=== PATIENT | female | born 1945 | race Caucasian/White ===

== ENCOUNTER 2016-09-07 23:14 | Emergency (ER) | payer MEDICARE, OTHER ==
[~2016-09-07] VITALS: Ht 170.2 cm; Wt 80.0 kg
[~2016-09-07 23:14] MED LIST: ATEN1TAB71 PO; ATOM60 PO; BUPR-197 PO; CALC500T19 PO; CLON1 PO; CONC54TA4 PO; NIAC500T18 PO; PIMO1TAB2 PO; PROT40TA PO; ROSU40 PO; SERO400T PO; TAB-TAB PO; TAUR500C2 PO; VITA400C70 PO; Z.0.WALKERFRONT; ZOFR4TAB3 SL; [UNRECOGNIZED DRUG - CODE] PO
[2016-09-07 23:18] VITALS: BP 148/74; PULSE 93; RESP 18; TEMP 97.3; O2SAT 98
--- NOTE | 2016-09-07 23:49 | PD ---
HPI Chief Complaint: Fall Time Seen by Provider: 23:49 Travel History International Travel<30 days: No Contact w/Intl Traveler<30days: No Traveled to known affect area: No History of Present Illness HPI 71 year-old female history of hypertension, anxiety, depression, ADD, presents emergency department for evaluation of perineal pain and swelling following an accident yesterday in which she tripped, straddling a hard plastic box. Patient states that she fell initially she was okay. She was given her body the opportunity to take care of the injury however it has gotten worse, more swollen, and is warm to touch. She states she did not fall and hit her head. Denying any hematuria or difficulty urinating. She does not report any changes in her bowel habits. No other symptoms to report. PFSH Past Medical History ADHD: Yes Arthritis: No Asthma: No Autoimmune Disease: No Blood Disorders: No Anxiety: Yes Depression: Yes Heart Rhythm Problems: No Cancer: Yes (+lymphnode - stage 3) Cardiovascular Problems: Yes (HTN and hyperlipidemia) High Cholesterol: No Chemotherapy: Yes (oral) Chest Pain: No Congestive Heart Failure: No COPD: No Cerebrovascular Accident: No Diabetes: No Diminished Hearing: No Endocrine: No Gastrointestinal Disorders: No GERD: No Genitourinary: No Headaches: No Hepatitis: No Hiatal Hernia: No Hypertension: Yes Immune Disorder: No Implanted Vascular Access Dvce: No Kidney Stones: No Musculoskeletal: No Neurologic: Yes (AMS, UTI) Psychiatric: Yes (pt takes multi meds, takes/took suboxone anxiety, depression) Reproductive: No Respiratory: Yes ("allergic asthma") Immunizations Current: Yes Migraines: No Radiation Therapy: No Renal Failure: No Seizures: No Sickle Cell Disease: No Sleep Apnea: No Thyroid Disease: No Ulcer: No Past Surgical History Abdominal Surgery: Yes (COLON RESECTION) AICD: No Arteriovenous Shunt: No Cardiac Surgery: No Ear Surgery: No Endocrine Surgery: No Eye Surgery: No Genitourinary Surgery: No Gynecologic Surgery: Yes (hysterectomy) Hysterectomy: Yes (PARTIAL) Insulin Pump: No Joint Replacement: No Neurologic Surgery: No Oral Surgery: No Pacemaker: No Thoracic Surgery: No Tonsillectomy: Yes Other Surgery: Yes (abdominal) Social History Alcohol Use: No Tobacco Use: No Substance Use: No Allergies-Medications (Allergen,Severity, Reaction): Coded Allergies: No Known Allergies (Unverified , 09/07/16) Reported Meds & Prescriptions Reported Meds & Active Scripts Active Lortab (Hydrocodone-Acetaminophen) 5-325 Mg Tab 1 Tab PO Q6H PRN Ibuprofen 600 Mg Tab 600 Mg PO Q8HR PRN Zofran ODT (Ondansetron HCl) 4 Mg Tab 4 Mg SL Q6HR PRN 14 Days Walker Front Wheel (Z.0.walkerfront) Device 1 Unit Reported Orap (Pimozide) 2 Mg Tab 2 Mg PO DAILY Concerta (Methylphenidate HCl) Methylphenidate 54 mg Miguel 2 Miguel PO DAILY Vitamin E-400 (Vitamin E) 400 Units Cap 400 Units PO DAILY Taurine 500 Mg Cap 500 Mg PO DAILY Seroquel 400 mg (Quetiapine Fumarate) 400 Mg Tab 400 Mg PO HS Crestor (Rosuvastatin Calcium) 40 Mg Tab 40 Mg PO HS Pimozide 2 Mg Tab 2 Mg PO HS Protonix (Pantoprazole Sodium) 40 Mg Tab 40 Mg PO BID Niacin (Niacinamide) 500 Mg Tab 500 Mg PO DAILY Multivitamin (Multivitamins) 1 Tab Tab 1 Tab PO DAILY Klonopin (Clonazepam) 1 Mg Tab 3 Mg PO HS Tenoretic-50 (Atenolol/Chlorthalidone) 1 Tab Tab 1 Tab PO DAILY Calcium 500 Mg Tab 500 Mg PO DAILY Wellbutrin (Bupropion HCl) 100 Mg Tab 400 Mg PO HS Strattera (Atomoxetine HCl) 60 Mg Cap 180 Mg PO HS Review of Systems Except as stated in HPI: all other systems reviewed are Neg Physical Exam Narrative GENERAL: Well-nourished, well-developed female patient, ambulatory and in no acute distress SKIN: Warm and dry. HEAD: Normocephalic. EYES: No scleral icterus. No injection or drainage. NECK: Supple, trachea midline. No JVD or lymphadenopathy. CARDIOVASCULAR: Regular rate and rhythm without murmurs, gallops, or rubs. RESPIRATORY: Breath sounds equal bilaterally. No accessory muscle use. Abdomen: Abdomen soft, non-tender, nondistended. Positive bowel sounds. No hepato-splenomegaly, or palpable masses. No guarding. GENITOURINARY: Significant ecchymosis of the perineum and swelling of the left labia majora. Ecchymosis extends into the suprapubic region. MUSCULOSKELETAL: No cyanosis, or edema. BACK: Nontender without obvious deformity. No CVA tenderness. Data Data Last Documented VS Vital Signs Date Time Temp Pulse Resp B/P Pulse Ox O2 Delivery O2 Flow Rate FiO2 09/08/16 00:10 9 20 09/07/16 23:18 97.3 148/74 98 Orders Iv Access Insert/Monitor (09/07/16 23:48) Complete Blood Count With Diff (09/07/16 23:48) Basic Metabolic Panel (Bmp) (09/07/16 23:48) Urinalysis - C+S If Indicated (09/07/16 23:48) Ct Abd/Pel W Iv Contrast(Rout) (09/07/16 ) Iodixanol 320 Inj (Visipaque 320 Inj) (09/08/16 01:12) Ibuprofen (Motrin) (09/08/16 02:00) Acetamin-Hydrocod 325-5 Mg (Tryon 5-325 (09/08/16 02:15) Labs Laboratory Tests Test 09/08/16 00:02 White Blood Count 9.5 TH/MM3 Red Blood Count 4.64 MIL/MM3 Hemoglobin 12.4 GM/DL Hematocrit 37.9 % Mean Corpuscular Volume 81.8 FL Mean Corpuscular Hemoglobin 26.7 PG Mean Corpuscular Hemoglobin 32.7 % Concent Red Cell Distribution Width 13.8 % Platelet Count 200 TH/MM3 Mean Platelet Volume 8.3 FL Neutrophils (%) (Auto) 58.6 % Lymphocytes (%) (Auto) 31.2 % Monocytes (%) (Auto) 7.1 % Eosinophils (%) (Auto) 2.3 % Basophils (%) (Auto) 0.8 % Neutrophils # (Auto) 5.5 TH/MM3 Lymphocytes # (Auto) 3.0 TH/MM3 Monocytes # (Auto) 0.7 TH/MM3 Eosinophils # (Auto) 0.2 TH/MM3 Basophils # (Auto) 0.1 TH/MM3 CBC Comment DIFF FINAL Differential Comment Sodium Level 139 MEQ/L Potassium Level 3.5 MEQ/L Chloride Level 102 MEQ/L Carbon Dioxide Level 31.9 MEQ/L Anion Gap 5 MEQ/L Blood Urea Nitrogen 17 MG/DL Creatinine 1.31 MG/DL Estimat Glomerular Filtration 40 ML/MIN Rate Random Glucose 122 MG/DL Calcium Level 8.8 MG/DL MDM Medical Decision Making Medical Screen Exam Complete: Yes Emergency Medical Condition: Yes Medical Record Reviewed: Yes Differential Diagnosis Ecchymosis versus hematoma versus pelvic fracture versus contusion Narrative Course 71-year-old female presents versus permanent for evaluation. Patient does have significant ecchymosis of the perineum. CBC and BMP are without acute concern. CT imaging is complete any fracture identified. There is a area of either inflammatory mass or hematoma in the perineum. Last Impressions Abdomen/Pelvis CT 09/07/16 0000 Signed Impressions: Service Date/Time: Thursday, September 08, 2016 01:10 - CONCLUSION: 1. 4.3 cm mass in the left perineal region in patient with history of trauma. Differential diagnosis includes hematoma but cannot exclude an inflammatory mass. There is also edema or bruising in the area mons pubis, left greater than right. 2. Severe constipation, especially left upper quadrant. Yunior Dudley MD Results are discussed with the patient. She is medically clear. She agrees to return immediately with any acute worsening of symptoms. Diagnosis Primary Impression: Perineal trauma Qualified Code: S39.94XA - Perineal trauma, initial encounter Additional Impressions: Perineal hematoma Qualified Code: S30.23XA - Perineal hematoma, initial encounter Constipation Referrals: Primary Care Physician Patient Instructions: General Instructions, Hematoma (ED) Additional Instructions: Cool compresses may help to alleviate pain Follow-up with a primary care provider Return immediately to the emergency department with any acute worsening symptoms Med/Other Pt SpecificInfo: Prescription(s) given Scripts Hydrocodone-Acetaminophen (Lortab)5-325 Mg Tab1 Tab PO Q6H PRN (PAIN GREATER THAN 6) #12 TAB Ref 0 Prov:Carlos Eduardo Law MD 09/08/16 Ibuprofen 600 Mg Ptd175 Mg PO Q8HR PRN (PAIN) #30 TAB Ref 0 Prov:Heather Ga 09/08/16 Disposition: 01 DISCHARGE HOME Condition: Stable Heather Ga Sep 07, 2016 23:49
[2016-09-08 00:14] LABS: AUTOMATED NEUTROPHIL # 5.5 TH/MM3 (1.8-7.7); BASOPHIL # 0.1 TH/MM3 (0-0.2); BASOPHIL % 0.8 % (0.0-2.0); EOSINOPHIL # 0.2 TH/MM3 (0-0.4); EOSINOPHIL % 2.3 % (0.0-4.0); HEMATOCRIT 37.9 % (35.0-46.0); HEMO FLAGS DIFF FINAL; LYMPH % 31.2 % (9.0-44.0); MEAN CELL VOLUME 81.8 FL (80.0-100.0); MEAN CORPUSCULAR HEMOGLOBIN 26.7 PG (27.0-34.0); MEAN CORPUSCULAR HGB CONC 32.7 % (32.0-36.0); MONO % 7.1 % (0.0-8.0); NEUT % 58.6 % (16.0-70.0); PLATELET COUNT 200 TH/MM3 (150-450); RED BLOOD COUNT 4.64 MIL/MM3 (4.00-5.30); RED CELL DISTRIBUTION WIDTH 13.8 % (11.6-17.2); WHITE BLOOD COUNT 9.5 TH/MM3 (4.0-11.0)
[2016-09-08 00:50] LABS: BICARBONATE 31.9 MEQ/L (21.0-32.0); POTASSIUM 3.5 MEQ/L (3.5-5.1)
[2016-09-08] MEDS ORDERED: IODIXANOL 320 MG/ML 10 ML VIAL (for RAD SPEC) IV ONE (01:12)
--- NOTE | 2016-09-08 01:54 | RADRPT ---
EXAM DATE/TIME: 09/08/2016 01:10 [facility] COMPARISON: CT ABDOMEN & PELVIS W/O CONTRAST, November 19, 2015, 21:20. CT ABDOMEN & PELVIS W CONTRAST, November 12, 2015, 0:54. INDICATIONS : Trauma; fall. Complains of left groin pain. IV CONTRAST: 47 cc Visipaque (iodixanol) IV ORAL CONTRAST: No oral contrast ingested. RADIATION DOSE: 6.54 CTDIvol (mGy) MEDICAL HISTORY : Hypertension. Lymphnode cancer. SURGICAL HISTORY : Hysterectomy. Colon resection. ENCOUNTER: Initial ACUITY: 1 day PAIN SCALE: 6/10 LOCATION: Left pelvis TECHNIQUE: Volumetric scanning of the abdomen and pelvis was performed. Using automated exposure control and ad justment of the mA and/or kV according to patient size, radiation dose was kept as low as reasonably achievable to obtain optimal diagnostic quality images. FINDINGS: Reportedly patient has a history of trauma with left groin pain. There is a mass in the perineal jonathon on on the left side measuring about 4.2 cm. This could represent a hematoma but cannot exclude an inf lammatory mass. There is edema or bruising in the area of mons pubis, left greater than right. No acute finding at the lung bases. Minimal atelectasis. No acute findings in the liver, spleen, adrenals, kidneys or pancreas. No calcified gallstones. There is moderate to severe constipation, especially in the left upper quadrant around a suspected staple line. CONCLUSION: 1. 4.3 cm mass in the left perineal region in patient with history of trauma. Differential diagnosis includes hematoma but cannot exclude an inflammatory mass. There is also edema or bruising in the are a mons pubis, left greater than right. 2. Severe constipation, especially left upper quadrant. Yunior Dudley MD on September 08, 2016 at 1:45 Board Certified Radiologist. This report was verified electronically.
[2016-09-08] MEDS ORDERED: IBUPROFEN 600 MG TAB PO ONE (02:00)
[2016-09-08] MEDS ORDERED: HYDR-3533 PO (02:01)
[2016-09-08] MEDS ORDERED: IBUP-232 PO (02:01)
[2016-09-08] MEDS ORDERED: ACETAMINOPHEN/HYDROcodone 325 MG/5 MG TAB PO ONE (02:15)
== END 2016-09-08 03:14 | disposition home or self-care (01) ==
LOC: NEPA 23:14
DX: S30.23XA Contusion of vagina and vulva, initial encounter (principal); W01.198A Fall on same level from slipping, tripping and stumbling with subsequent striking against other object, initial encounter
CPT/HCPCS: 74177; 80048; 85025; 99284; Q9967

== ENCOUNTER 2016-09-20 13:55 | Emergency (ER) | payer MEDICARE, OTHER ==
[~2016-09-20 13:55] MED LIST changes: +HYDR-3533 PO; +IBUP-232 PO
[2016-09-20 13:58] VITALS: BP 144/65; PULSE 96; RESP 20; TEMP 97.3; O2SAT 98
--- NOTE | 2016-09-20 15:06 | PD ---
HPI Chief Complaint: Musculoskeletal Complaint Time Seen by Provider: 15:06 Travel History International Travel<30 days: No Contact w/Intl Traveler<30days: No Traveled to known affect area: No History of Present Illness HPI 71-year-old female presents to the emergency Department with complaint of left sided vaginal pain after falling onto a plastic box 2 days ago. She said about 2 weeks ago she was seen here for the same complaint because she had fallen the same exact way and landed on the same spot. She said the area had been getting better and re-worsened after falling on the box again 2 days ago. She denies vaginal bleeding, hematuria. Reports pain on urination. Says it only hurts when she urinates because she feels like she has to push and it causes pressure to the area. Denies change in bowel habits. She has been taking Aleve and ibuprofen with some relief of pain. She has not taken any other medications or try any other treatments to alleviate her symptoms. She said she was given prescriptions last time she was here but misplace them and doesn't know where they are. Denies fever, chills, nausea, vomiting, abdominal pain. No known allergies. No other modifying factors or associated signs and symptoms. PFSH Past Medical History ADHD: Yes Arthritis: No Asthma: No Autoimmune Disease: No Blood Disorders: No Anxiety: Yes Depression: Yes Heart Rhythm Problems: No Cancer: Yes (+lymphnode - stage 3) Cardiovascular Problems: Yes (HTN and hyperlipidemia) High Cholesterol: No Chemotherapy: Yes ("A LITTLE OVER A YEAR AGO") Chest Pain: No Congestive Heart Failure: No COPD: No Cerebrovascular Accident: No Diabetes: No Diminished Hearing: No Endocrine: No Gastrointestinal Disorders: No GERD: No Genitourinary: No Headaches: No Hepatitis: No Hiatal Hernia: No Hypertension: Yes Immune Disorder: No Implanted Vascular Access Dvce: No Kidney Stones: No Musculoskeletal: No Neurologic: Yes (AMS, UTI) Psychiatric: Yes (pt takes multi meds, takes/took suboxone anxiety, depression) Reproductive: No Respiratory: Yes ("allergic asthma") Immunizations Current: Yes Migraines: No Radiation Therapy: No Renal Failure: No Seizures: No Sickle Cell Disease: No Sleep Apnea: No Thyroid Disease: No Ulcer: No ?: Not Past Surgical History Abdominal Surgery: Yes (COLON RESECTION) AICD: No Arteriovenous Shunt: No Cardiac Surgery: No Ear Surgery: No Endocrine Surgery: No Eye Surgery: No Genitourinary Surgery: No Gynecologic Surgery: Yes (hysterectomy) Hysterectomy: Yes Insulin Pump: No Joint Replacement: No Neurologic Surgery: No Oral Surgery: No Pacemaker: No Thoracic Surgery: No Tonsillectomy: Yes Other Surgery: Yes (abdominal) Social History Alcohol Use: No Tobacco Use: No Substance Use: No Allergies-Medications (Allergen,Severity, Reaction): Coded Allergies: No Known Allergies (Unverified , 09/20/16) Reported Meds & Prescriptions Reported Meds & Active Scripts Active Ibuprofen 600 Mg Tab 600 Mg PO Q8HR PRN Lortab (Hydrocodone-Acetaminophen) 5-325 Mg Tab 1 Tab PO Q6H PRN Review of Systems Except as stated in HPI: all other systems reviewed are Neg Physical Exam Narrative GENERAL: Well-nourished, well-developed female patient, in no acute distress SKIN: Warm and dry. HEAD: Atraumatic. Normocephalic. EYES: Pupils equal and round. No scleral icterus. No injection or drainage. ENT: Mucosa pink and moist. Airway patent. NECK: Trachea midline. CARDIOVASCULAR: Regular rate. RESPIRATORY: No accessory muscle use. GASTROINTESTINAL: Abdomen soft, non-tender, nondistended. Positive bowel sounds. No hepato-splenomegaly, or palpable masses. No guarding. GENITOURINARY: Swelling noted of the left labia majora; there is without erythema or warmth to touch; with tenderness on palpation; feel the findings are consistent with a hematoma. Old Ecchymosis noted to the suprapubic region. MUSCULOSKELETAL: No obvious deformities. No clubbing. No cyanosis. No edema. NEUROLOGICAL: Awake and alert. Oriented 3. No obvious cranial nerve deficits. Motor grossly within normal limits. Normal speech. PSYCHIATRIC: Appropriate mood and affect; insight and judgment normal. Data Data Last Documented VS Vital Signs Date Time Temp Pulse Resp B/P Pulse Ox O2 Delivery O2 Flow Rate FiO2 09/20/16 13:58 97.3 96 20 144/65 98 Room Air Orders Urinalysis - C+S If Indicated (09/20/16 15:14) Ketorolac Inj (Toradol Inj) (09/20/16 15:15) Labs Laboratory Tests Test 09/20/16 15:20 Urine Color YELLOW Urine Turbidity CLEAR Urine pH 6.0 Urine Specific [place] 1.009 Urine Protein 30 mg/dL Urine Glucose (UA) NEG mg/dL Urine Ketones NEG mg/dL Urine Occult Blood NEG Urine Nitrite NEG Urine Bilirubin NEG Urine Urobilinogen LESS THAN 2.0 MG/DL Urine Leukocyte Esterase NEG Urine RBC LESS THAN 1 /hpf Urine WBC 1 /hpf Urine Squamous Epithelial <1 /hpf Cells Urine Mucus FEW /lpf Microscopic Urinalysis Comment CULT NOT INDICATED MDM Medical Decision Making Medical Screen Exam Complete: Yes Emergency Medical Condition: Yes Medical Record Reviewed: Yes Differential Diagnosis Fall, perineal trauma, UTI Narrative Course 71-year-old female that was seen on September 07 for perineal trauma presents for repeat injury of cranial trauma by, again, falling on a plastic box. Antiv a CT of the abdomen/pelvis was performed and concluded 4.3 cm mass in the left perineal region in patient with history of trauma. Differential diagnosis includes hematoma but cannot exclude an inflammatory mass; There is also edema or bruising in the area mons pubis, left greater than right; Severe constipation, especially left upper quadrant. I reviewed the findings with the last visit and feel current findings are consistent with past findings and that imaging is not necessary again at this time. I will do a urinalysis to rule out UTI as the patient reports dysuria. Toradol ordered. Urinalysis ordered. 1603: Urinalysis without signs of infection. Ibuprofen prescribed for home. Instructed patient to follow up with gynecology. Patient verbalizes understanding and agreement with treatment plan. Patient is medically cleared and stable for discharge. Discussed reasons to return to the emergency department. Instructed patient to follow up with primary care provider. Patient agrees with treatment plan. The patients vital signs are stable and the patient is stable for outpatient follow-up and treatment. Patient discharged home, stable and in no acute distress. Diagnosis Primary Impression: Perineal trauma Qualified Code: S39.94XD - Perineal trauma, subsequent encounter Additional Impression: Perineal hematoma Qualified Code: S30.23XD - Perineal hematoma, subsequent encounter Referrals: Engineer Intern Primary Care Physician Additional Instructions: Ibuprofen or Tylenol as directed and as needed for pain and inflammation Warm and/or compresses to the affected area for symptom management Follow-up with scientist propagator Follow-up with primary care provider Return to the emergency department immediately with worsening of symptoms Med/Other Pt SpecificInfo: Prescription(s) given Scripts Ibuprofen 600 Mg [id number] Mg PO Q8HR PRN (PAIN) #30 TAB Ref 0 Prov:Germaine De La Garza 09/20/16 Disposition: 01 DISCHARGE HOME Condition: Stable Germaine De La Garza Sep 20, 2016 15:06
[2016-09-20] MEDS ORDERED: KETOROLAC TROMETHAMINE 60 MG/2 ML (IM) VIAL IM ONE (15:15)
[2016-09-20] MEDS ORDERED: IBUP-232 PO (15:46)
[2016-09-20 15:59] LABS: BLOOD, URINE NEG (NEG); COMMENT (UR) CULT NOT INDICATED; CULTURE IF INDICATED CULT NOT INDICATED; GLUCOSE,URINE NEG (NEG); KETONE, URINE NEG (NEG); MUCUS URINE FEW /lpf (OCC); NITRITE,URINE NEG (NEG); SQUAMOUS EPITHELIAL CELL URINE <1 /hpf (0-5); URINE COLOR YELLOW (YELLW/STRAW)
== END 2016-09-20 16:23 | disposition home or self-care (01) ==
LOC: NEPB 13:55
DX: S39.94XA Unspecified injury of external genitals, initial encounter (principal); I10 Essential (primary) hypertension; E78.5 Hyperlipidemia, unspecified; W17.89XA Other fall from one level to another, initial encounter
CPT/HCPCS: 81001; 96372; 99283; J1885

== ENCOUNTER 2016-10-01 16:58 | Inpatient (IN) | payer MEDICARE, OTHER ==
[~2016-10-01 16:58] MED LIST changes: -ATEN1TAB71 PO; -ATOM60 PO; -BUPR-197 PO; -CALC500T19 PO; -CLON1 PO; -CONC54TA4 PO; -NIAC500T18 PO; -PIMO1TAB2 PO; -PROT40TA PO; -ROSU40 PO; -SERO400T PO; -TAB-TAB PO; -TAUR500C2 PO; -VITA400C70 PO; -Z.0.WALKERFRONT; -ZOFR4TAB3 SL; -[UNRECOGNIZED DRUG - CODE] PO
[2016-10-01 16:59] VITALS: BP 134/62; PULSE 93; RESP 20; TEMP 98.2; O2SAT 99
--- NOTE | 2016-10-01 18:42 | PD ---
HPI Chief Complaint: Abdominal Pain Time Seen by Provider: 18:35 Travel History International Travel<30 days: No Contact w/Intl Traveler<30days: No Traveled to known affect area: No History of Present Illness HPI This is a 71-year-old female presents for evaluation of abdominal pain, distention, inability to pass gas. She reports that she has been constipated for the past 2 weeks only passing occasional hard pebbly stools. She reports that this is normal for her. She now reports that throughout the day today she has felt abdominal distention and generalized crampy abdominal pain. She reports that she has not passed any gas today. She tried taking magnesium citrate 3 hours ago but this did not help. Denies nausea Or vomiting. She reports that she has had paralytic ileus twice in the past. She also reports a history of colon cancer status post partial resection of her colon in 2014. No history of obstruction. No other complaints. PFSH Past Medical History ADHD: Yes Arthritis: No Asthma: No Autoimmune Disease: No Blood Disorders: No Anxiety: Yes Depression: Yes Heart Rhythm Problems: No Cancer: Yes (+lymphnode - stage 3) Cardiovascular Problems: Yes (HTN and hyperlipidemia) High Cholesterol: No Chemotherapy: Yes ("A LITTLE OVER A YEAR AGO") Chest Pain: No Congestive Heart Failure: No COPD: No Cerebrovascular Accident: No Diabetes: No Diminished Hearing: No Endocrine: No Gastrointestinal Disorders: No GERD: No Genitourinary: No Headaches: No Hepatitis: No Hiatal Hernia: No Hypertension: Yes Immune Disorder: No Implanted Vascular Access Dvce: No Kidney Stones: No Musculoskeletal: No Neurologic: Yes (AMS, UTI) Psychiatric: Yes (pt takes multi meds, takes/took suboxone anxiety, depression) Reproductive: No Respiratory: Yes ("allergic asthma") Immunizations Current: Yes Migraines: No Radiation Therapy: No Renal Failure: No Seizures: No Sickle Cell Disease: No Sleep Apnea: No Thyroid Disease: No Ulcer: No Past Surgical History Abdominal Surgery: Yes (COLON RESECTION) AICD: No Arteriovenous Shunt: No Cardiac Surgery: No Ear Surgery: No Endocrine Surgery: No Eye Surgery: No Genitourinary Surgery: No Gynecologic Surgery: Yes (hysterectomy) Hysterectomy: Yes Insulin Pump: No Joint Replacement: No Neurologic Surgery: No Oral Surgery: No Pacemaker: No Thoracic Surgery: No Tonsillectomy: Yes Other Surgery: Yes (abdominal) Social History Alcohol Use: No Tobacco Use: No Substance Use: No Allergies-Medications (Allergen,Severity, Reaction): Coded Allergies: No Known Allergies (Unverified , 10/01/16) Reported Meds & Prescriptions Reported Meds & Active Scripts Active Ibuprofen 600 Mg Tab 600 Mg PO Q8HR PRN Lortab (Hydrocodone-Acetaminophen) 5-325 Mg Tab 1 Tab PO Q6H PRN Review of Systems Except as stated in HPI: all other systems reviewed are Neg Physical Exam Narrative GENERAL: Well-developed well-nourished female in no acute distress SKIN: Warm and dry. HEAD: Atraumatic. Normocephalic. EYES: Pupils equal and round. No scleral icterus. No injection or drainage. ENT: No nasal bleeding or discharge. Mucous membranes pink and moist. NECK: Trachea midline. No JVD. CARDIOVASCULAR: Regular rate and rhythm. No murmur appreciated. RESPIRATORY: No accessory muscle use. Clear to auscultation. Breath sounds equal bilaterally. GASTROINTESTINAL: Abdomen soft, generalized mild tenderness, some distention noted. Decreased bowel sounds are noted in all 4 quadrants. No CVA tenderness. MUSCULOSKELETAL: No obvious deformities. No edema. NEUROLOGICAL: Awake and alert. No obvious cranial nerve deficits. Motor grossly within normal limits. Normal speech. Data Data Last Documented VS Vital Signs Date Time Temp Pulse Resp B/P Pulse Ox O2 Delivery O2 Flow Rate FiO2 10/01/16 20:40 89 20 139/60 99 Room Air 10/01/16 16:59 98.2 Orders Complete Blood Count With Diff (10/01/16 18:38) Comprehensive Metabolic Panel (10/01/16 18:38) Lipase (10/01/16 18:38) Urinalysis - C+S If Indicated (10/01/16 18:38) Ct Abd/Pel W Iv Contrast(Rout) (10/01/16 18:38) Oral Contrast - Adult (10/01/16 18:43) Diatrizoate Liq ( Gastroview Liq) (10/01/16 18:49) Labs Laboratory Tests Test 10/01/16 19:03 White Blood Count 13.1 TH/MM3 Red Blood Count 4.93 MIL/MM3 Hemoglobin 13.3 GM/DL Hematocrit 40.4 % Mean Corpuscular Volume 81.9 FL Mean Corpuscular Hemoglobin 27.0 PG Mean Corpuscular Hemoglobin 32.9 % Concent Red Cell Distribution Width 13.9 % Platelet Count 279 TH/MM3 Mean Platelet Volume 8.7 FL Neutrophils (%) (Auto) 77.0 % Lymphocytes (%) (Auto) 14.4 % Monocytes (%) (Auto) 6.9 % Eosinophils (%) (Auto) 0.8 % Basophils (%) (Auto) 0.9 % Neutrophils # (Auto) 10.1 TH/MM3 Lymphocytes # (Auto) 1.9 TH/MM3 Monocytes # (Auto) 0.9 TH/MM3 Eosinophils # (Auto) 0.1 TH/MM3 Basophils # (Auto) 0.1 TH/MM3 CBC Comment DIFF FINAL Differential Comment Sodium Level 138 MEQ/L Potassium Level 3.5 MEQ/L Chloride Level 99 MEQ/L Carbon Dioxide Level 30.9 MEQ/L Anion Gap 8 MEQ/L Blood Urea Nitrogen 16 MG/DL Creatinine 1.72 MG/DL Estimat Glomerular Filtration 29 ML/MIN Rate Random Glucose 123 MG/DL Calcium Level 8.6 MG/DL Total Bilirubin 0.3 MG/DL Aspartate Amino Transf 11 U/L (AST/SGOT) Alanine Aminotransferase 14 U/L (ALT/SGPT) Alkaline Phosphatase 45 U/L Total Protein 7.5 GM/DL Albumin 4.0 GM/DL Lipase 176 U/L [facility] Medical Decision Making Medical Screen Exam Complete: Yes Emergency Medical Condition: Yes Medical Record Reviewed: Yes Differential Diagnosis Ileus, obstruction, constipation, fecal impaction Narrative Course This is a 71-year-old female with frequent episodes of constipation who presents now with a one-day history of inability to pass gas, abdominal distention and generalized crampy abdominal pain. The patient was initially seen in triage where lab work, CT imaging of the abdomen have been ordered. The patient will be moved to a medical bed when one becomes available. Jimbo Rasmussen Oct 01, 2016 18:42
[2016-10-01] MEDS: DIATRIZOATE MEGLUM/DIATRIZOATE SOD 9 ML CUP ONE ×2 (18:49→18:51)
[2016-10-01 19:54] LABS: AUTOMATED NEUTROPHIL # 10.1 TH/MM3 (1.8-7.7); BASOPHIL # 0.1 TH/MM3 (0-0.2); BASOPHIL % 0.9 % (0.0-2.0); EOSINOPHIL # 0.1 TH/MM3 (0-0.4); EOSINOPHIL % 0.8 % (0.0-4.0); HEMATOCRIT 40.4 % (35.0-46.0); HEMO FLAGS DIFF FINAL; LYMPH % 14.4 % (9.0-44.0); LYMPHOCYTE # 1.9 TH/MM3 (1.0-4.8); MEAN CELL VOLUME 81.9 FL (80.0-100.0); MEAN CORPUSCULAR HGB CONC 32.9 % (32.0-36.0); MONO % 6.9 % (0.0-8.0); PLATELET COUNT 279 TH/MM3 (150-450); RED BLOOD COUNT 4.93 MIL/MM3 (4.00-5.30); RED CELL DISTRIBUTION WIDTH 13.9 % (11.6-17.2); WHITE BLOOD COUNT 13.1 TH/MM3 (4.0-11.0)
[2016-10-01 20:19] LABS: ALT (GPT) 14 U/L (10-53); ANION GAP 8 MEQ/L (5-15); AST (GOT) 11 U/L (15-37); BICARBONATE 30.9 MEQ/L (21.0-32.0); BLOOD UREA NITROGEN 16 MG/DL (7-18); CHLORIDE 99 MEQ/L (98-107); GLOMERULAR FILTRATION RATE 29 ML/MIN (>89); POTASSIUM 3.5 MEQ/L (3.5-5.1); SODIUM (NA) 138 MEQ/L (136-145)
[2016-10-01 20:21] LABS: ALKALINE PHOSPHATASE 45 U/L (45-117); TOTAL BILIRUBIN ADULT 0.3 MG/DL (0.2-1.0)
[2016-10-01 20:40] VITALS: BP 139/60; PULSE 89; RESP 20; O2SAT 99
[2016-10-01] MEDS ORDERED: ROSU40 PO (20:47)
[2016-10-01] MEDS ORDERED: BUPR100CR PO (20:47)
[2016-10-01] MEDS ORDERED: CONC54TA4 PO (20:47)
[2016-10-01] MEDS ORDERED: ATOM60 PO (20:47)
[2016-10-01] MEDS ORDERED: PIMO1TAB2 PO (20:47)
[2016-10-01] MEDS ORDERED: ROPI1TAB PO (20:48)
[2016-10-01 21:01] LABS: BACTERIA, URINE OCC /hpf; BLOOD, URINE NEG (NEG); GLUCOSE,URINE NEG (NEG); KETONE, URINE NEG (NEG); NITRITE,URINE NEG (NEG); PH, URINE 7.5 (5.0-8.5); URINE COLOR YELLOW (YELLW/STRAW)
[2016-10-01] MEDS ORDERED: DIATRIZOATE MEGLUM/DIATRIZOATE SOD 9 ML CUP ONE (21:03)
[2016-10-01 21:06] LABS: COMMENT (UR) CULT NOT INDICATED; CULTURE IF INDICATED CULT NOT INDICATED
--- NOTE | 2016-10-01 21:23 | PD ---
Physical Exam Narrative Patient was seen by physician prosthetics assistant and signed out to me. Data Data Last Documented VS Vital Signs Date Time Temp Pulse Resp B/P Pulse Ox O2 Delivery O2 Flow Rate FiO2 10/01/16 20:40 89 20 139/60 99 Room Air 10/01/16 16:59 98.2 Orders Complete Blood Count With Diff (10/01/16 18:38) Comprehensive Metabolic Panel (10/01/16 18:38) Lipase (10/01/16 18:38) Urinalysis - C+S If Indicated (10/01/16 18:38) Oral Contrast - Adult (10/01/16 18:43) Diatrizoate Liq ( Gastroiliana Liq) (10/01/16 18:49) Diatrizoate Liq (Md [place] Liq) (10/01/16 21:03) Ct Abd/Pel W/O Iv Contrast (10/01/16 21:20) Labs Laboratory Tests Test 10/01/16 10/01/16 19:03 20:28 White Blood Count 13.1 TH/MM3 Red Blood Count 4.93 MIL/MM3 Hemoglobin 13.3 GM/DL Hematocrit 40.4 % Mean Corpuscular Volume 81.9 FL Mean Corpuscular Hemoglobin 27.0 PG Mean Corpuscular Hemoglobin 32.9 % Concent Red Cell Distribution Width 13.9 % Platelet Count 279 TH/MM3 Mean Platelet Volume 8.7 FL Neutrophils (%) (Auto) 77.0 % Lymphocytes (%) (Auto) 14.4 % Monocytes (%) (Auto) 6.9 % Eosinophils (%) (Auto) 0.8 % Basophils (%) (Auto) 0.9 % Neutrophils # (Auto) 10.1 TH/MM3 Lymphocytes # (Auto) 1.9 TH/MM3 Monocytes # (Auto) 0.9 TH/MM3 Eosinophils # (Auto) 0.1 TH/MM3 Basophils # (Auto) 0.1 TH/MM3 CBC Comment DIFF FINAL Differential Comment Sodium Level 138 MEQ/L Potassium Level 3.5 MEQ/L Chloride Level 99 MEQ/L Carbon Dioxide Level 30.9 MEQ/L Anion Gap 8 MEQ/L Blood Urea Nitrogen 16 MG/DL Creatinine 1.72 MG/DL Estimat Glomerular Filtration 29 ML/MIN Rate Random Glucose 123 MG/DL Calcium Level 8.6 MG/DL Total Bilirubin 0.3 MG/DL Aspartate Amino Transf 11 U/L (AST/SGOT) Alanine Aminotransferase 14 U/L (ALT/SGPT) Alkaline Phosphatase 45 U/L Total Protein 7.5 GM/DL Albumin 4.0 GM/DL Lipase 176 U/L Urine Color YELLOW Urine Turbidity HAZY Urine pH 7.5 Urine Specific [place] 1.009 Urine Protein 30 mg/dL Urine Glucose (UA) NEG mg/dL Urine Ketones NEG mg/dL Urine Occult Blood NEG Urine Nitrite NEG Urine Bilirubin NEG Urine Urobilinogen LESS THAN 2.0 MG/DL Urine Leukocyte Esterase SMALL Urine RBC 1 /hpf Urine WBC 2 /hpf Urine Amorphous Sediment RARE Urine Bacteria OCC /hpf Microscopic Urinalysis Comment CULT NOT INDICATED MDM Supervised Visit with MATTEO: Yes Interpretation(s) 21:22 PM. CBC WBC 13.1. 77 neutrophil. Creatinine 1.72. UA is negative. 22:20 PM. Last Impressions Abdomen/Pelvis CT 10/01/162119 Signed Impressions: Service Date/Time: Saturday, October 01, 2016 21:44 - CONCLUSION: 1. There appears to be a stricture of the colon on the left side at the junction of descending colon and sigmoid colon adjacent to postsurgical sutures and possibility of anastomotic stricture or other types of luminal narrowing should be entertained with significant dilatation of the colon proximal to it which is filled with stool. The exact etiology of the patient's prior colon surgery is not known to us. 2. Reduction in size of the masslike density in the perineum adjacent to labia on the left side may be a resolving hematoma. Tomasa Claire MD 22:26 PM. CBC WBC 13.1. 77 neutrophil. Creatinine 1.72. UA is negative. Diagnosis Primary Impression: Large bowel obstruction Admitting Information Admitting Physician Requests: Admit Carlos Eduardo Law MD Oct 01, 2016 21:23
--- NOTE | 2016-10-01 22:12 | RADRPT ---
EXAM DATE/TIME: 10/01/2016 21:44 [facility] COMPARISON: CT ABDOMEN & PELVIS W CONTRAST, November 12, 2015, 0:54. CT ABDOMEN & PELVIS W/O CONTRAST, November 19, 2015, 21:20. CT ABDOMEN & PELVIS W CONTRAST, September 08, 2016, 1:10. INDICATIONS : Lower abdominal pain with constipation for 2 weeks. ORAL CONTRAST: No oral contrast ingested. RADIATION DOSE: 9.96 CTDIvol (mGy) MEDICAL HISTORY : Hypertension. Carcinoma, not otherwise specified. SURGICAL HISTORY : Colon resection. Hysterectomy. ENCOUNTER: Initial ACUITY: 2 weeks PAIN SCALE: 10/10 LOCATION: Lower abdomen/pelvis TECHNIQUE: Volumetric scanning of the abdomen and pelvis was performed. Using automated exposure control and adjustment of the mA and/or kV according to patient size, radiation dose was kept as low as reasonably achievable to obtain optimal diagnostic quality images. FINDINGS: CT Abdomen: The spleen, pancreas, kidneys, adrenals are unremarkable. There is no evidence for any ap preciable pathological adenopathy, free fluid, or bowel obstruction. Small splenic splenule is seen. There are multiple low attenuating lesions in the liver the largest one in the right hepatic lobe pos teromedially measures 2.3 cm in size not changed may be cysts and/or hemangiomas. There are old heale d rib fractures in the left chest. CT pelvis: There is no evidence for mass, abscess formation, or any significant adenopathy within the pelvis. There is extensive amount of stool throughout the colon. Postsurgical sutures are identified in the left side of the abdomen adjacent to descending colon and there appears to be a transition zo ne at this site to a narrow lumen of sigmoid colon and possibility of post-anastomotic stricture shou ld be entertained. The colon proximal to this site is filled with extensive stool and measures almost 9.1 cm in size with slight strandy densities in the pericolonic fat plane. Previously seen masslike area in the perineum adjacent to labia has reduced in size measuring 3.6 cm in size may be a resolvin g hematoma. It was not present on the study from 11/2015. CONCLUSION: 1. There appears to be a stricture of the colon on the left side at the junction of descending colon and sigmoid colon adjacent to postsurgical sutures and possibility of anastomotic stricture or other types of luminal narrowing should be entertained with significant dilatation of the colon proximal to it which is filled with stool. The exact etiology of the patient's prior colon surgery is not known to us. 2. Reduction in size of the masslike density in the perineum adjacent to labia on the left side may b e a resolving hematoma. Tomasa Claire MD on October 01, 2016 at 22:01 Board Certified Radiologist. This report was verified electronically.
[2016-10-01] MEDS ORDERED: TRAZ150T75 PO (22:30)
[2016-10-01] MEDS ORDERED: KLON2TAB PO (22:30)
[2016-10-01 22:36] VITALS: BP 108/58; PULSE 77; RESP 20; O2SAT 99
[2016-10-01] MEDS ORDERED: SODIUM CHLORIDE 0.9% FLUSH 10 ML FLUSH IVF PRN (23:30)
[2016-10-01] MEDS ORDERED: ONDANSETRON HCL 4 MG/2 ML VIAL IV PRN (23:30)
[2016-10-01] MEDS ORDERED: ACETAMINOPHEN 325 MG TAB PO PRN (23:30)
[2016-10-02] MEDS: SODIUM CHLOR 0.9% 1000 ML INJ 1,000 ML IV SCH ×2 (00:25→16:12)
[2016-10-02 01:12] VITALS: BP 146/64; PULSE 75; RESP 20; O2SAT 99
[2016-10-02] MEDS ORDERED: NALOXONE HCL 0.4 MG/ML AMP IV PRN (01:15)
[2016-10-02] MEDS: clonazePAM 1 MG TAB PO SCH ×2 (01:49→21:30)
[2016-10-02] MEDS: traZODone HCL 50 MG TAB PO SCH ×2 (01:49→21:30)
[2016-10-02 01:53] VITALS: BP 156/63; PULSE 75; RESP 20; O2SAT 99
[2016-10-02 08:12] VITALS: BP 143/63; PULSE 72; RESP 16; O2SAT 100
[2016-10-02] MEDS: SODIUM CHLORIDE 0.9% FLUSH 10 ML FLUSH IV FLUSH SCH ×2 (09:00→21:00)
[2016-10-02] MEDS: HEPARIN SODIUM - SQ 10,000 UNITS/ML VIAL SQ SCH ×2 (09:15→21:31)
--- NOTE | 2016-10-02 09:48 | HHI.HP ---
HPI Service [facility] Primary Care Physician Wojciech Mcgill III, MD Admission Diagnosis large bowel obstruction Diagnoses: Chief Complaint: abdominal pain, constipation x 2 weeks (Makayla Rutherford) Travel History International Travel<30 Days: No Contact w/Intl Traveler <30 Da: No Traveled to Known Affected Are: No (Makayla Rutherford) History of Present Illness Patient is a 70-year-old female with history of colon cancer April 2015, status post left hemicolectomy per Dr. hCance, ADHD, hypertension, hyperlipidemia. She's had frequent admissions for bowel obstructions treated nonsurgically, the last time was in 2015 during which time she required NG tube insertion and TPN. Patient presents to the emergency room with complaint of abdominal pain, distention, inability to pass gas. Patient reports that she has not been able to have a bowel movement for 2 weeks, she is only passing car pebble-sized stools. Indicates that she does have a history of constipation since she was a child. She took 2 bottles of mag citrate yesterday without any results. She has felt abdominal distention and generalized crampy pain. She was evaluated in emergency room, CBC remarkable for mild leukocytosis, WBC 13.1. BMP remarkable for elevated creatinine, 1.72. Hemodynamically stable, no fever. CT of the abdomen shows stricture of the colon on the left side at the junction of descending colon and sigmoid colon adjacent to postsurgical sutures and possibility of anastomotic stricture or other type of luminal narrowing should be entertained with significant dilatation of the colon proximally to it which is filled with stool. There is a masslike density in the perineum on that appears redundant skin size, it is adjacent to the labia and the left side. May be a resolving hematoma. Patient was recently seen in the emergency room after she had a fall and had an injury to the perineum. Patient was admitted. She has been evaluated by Dr. Chance. At this time, patient is complaining of pain and requesting medication. Patient is very concerned about her oral medications, she is on multiple medications for history of ADHD and Tourette's. Patient is admitted for further elevation and treatment. (Makayla Rutherford) Review of Systems Constitutional: COMPLAINS OF: Change in appetite, DENIES: Diaphoretic episodes , Fatigue, Fever, Weight gain, Weight loss, Chills, Dizziness, Night Sweats Endocrine: DENIES: Abnorml menstrual pattern, Heat/cold intolerance, Polydipsia , Polyuria, Polyphagia Eyes: DENIES: Blurred vision, Diplopia, Eye inflammation, Eye pain, Vision loss , Photosensitivity, Double Vision Ears, nose, mouth, throat: DENIES: Tinnitus, Hearing loss, Vertigo, Nasal discharge, Oral lesions, Throat pain, Hoarseness, Ear Pain, Running Nose, Epistaxis, Sinus Pain, Toothache, Odynophagia Respiratory: DENIES: Apneas, Cough, Snoring, Wheezing, Hemoptysis, Sputum production, Shortness of breath Cardiovascular: DENIES: Chest pain, Palpitations, Syncope, Dyspnea on Exertion , PND, Lower Extremity Edema, Orthopnea, Claudication Gastrointestinal: COMPLAINS OF: Abdominal pain, Constipation, DENIES: Black stools, Bloody stools, Diarrhea, Nausea, Vomiting, Difficulty Swallowing, Anorexia Genitourinary: DENIES: Abnormal vaginal bleeding, Dysmenorrhea, Dyspareunia, Sexual dysfunction, Urinary frequency, Urinary incontinence, Urgency, Hematuria , Dysuria, Nocturia, Vaginal discharge Musculoskeletal: DENIES: Joint pain, Muscle aches, Stiffness, Joint Swelling, Back pain, Neck pain Integumentary: DENIES: Abnormal pigmentation, Pruritus, Rash, Nail changes, Breast masses, Breast skin changes, Nipple discharge Hematologic/lymphatic: DENIES: Bruising, Lymphadenopathy Immunologic/allergic: DENIES: Eczema, Urticaria Neurologic: DENIES: Abnormal gait, Headache, Localized weakness, Paresthesias, Seizures, Speech Problems, Tremor, Poor Balance Psychiatric: COMPLAINS OF: Anxiety, DENIES: Confusion, Mood changes, Depression, Hallucinations, Agitation, Suicidal Ideation, Homicidal Ideation, Delusions (Makayla Rutherford) Past Family Social History Past Medical History 1. Adenocarcinoma of the colon status post recent left hemicolectomy. 2. ADHD. 3. Tourette's syndrome. 4. Hypertension. 5. Asthma. 6. History of GI bleed in May of 2015, was found to have a large duodenal ulcer and has had an upper endoscopy then. 7. Recurrent bowel obstructions. 8. History of narcotic dependence. 9. Obesity. 10. Admitted 2016 for bowel obstructions x 2, treated medically. Required NGT and TPN. Had colonoscopy Past Surgical History Past surgical history significant for: 1. Left hemicolectomy in April of 2015. 2. EGD in May 2005. 3. Hysterectomy partial in 1987. 4. Colonoscopy. 5. Melanoma excision from right thigh January 2016 6. S/P colonoscopy 2016 Reported Medications Reported Meds & Active Scripts Active Ibuprofen 600 Mg Tab 600 Mg PO Q8HR PRN Lortab (Hydrocodone-Acetaminophen) 5-325 Mg Tab 1 Tab PO Q6H PRN Reported Trazodone (Trazodone HCl) 150 Mg Tab 150 Mg PO HS Klonopin (Clonazepam) 2 Mg Tab 4 Mg PO HS Ropinirole 1 Mg Tab 1 Mg PO HS Wellbutrin SR 12 HR (Bupropion HCl) 100 Mg Tab 400 Mg PO Q12HR Crestor (Rosuvastatin Calcium) 40 Mg Tab 40 Mg PO HS Pimozide 2 Mg Tab 1 Tab PO HS Strattera (Atomoxetine HCl) 60 Mg Cap 180 Mg PO DAILY Concerta (Methylphenidate HCl) 54 Mg Miguel 108 Mg PO DAILY (Makayla Rutherford ) Allergies: Coded Allergies: No Known Allergies (Unverified , 10/01/16) Active Ordered Medications Inpatient Medications Acetaminophen (Tylenol) 650 mg Q4H PRN PO Temp>101F, Headache; Start 10/01/16 at 23:30 Bupropion HCl (Wellbutrin Sr 12 Hr) 200 mg BID PO ; Start 10/02/16 at 09:00 Clonazepam (KlonoPIN) 4 mg HS PO Last administered on 10/02/16 01:49; Start at 01:30 Heparin Sodium (Porcine) (Heparin Inj) 5,000 units Q12H SQ Last administered on 10/02/16 09:15; Start 10/02/16 at 09:00 Naloxone HCl (Narcan Inj) 0.4 mg UNSCH PRN IV SEE LABEL COMMENTS; Start at 01:15 Ondansetron HCl (Zofran Inj) 4 mg Q6H PRN IV NAUSEA OR VOMITING; Start at 23:30 Ropinirole HCl (Requip) 1 mg HS PO Last administered on 10/02/16 02:31; Start 10/02/16 at 01:30 Sodium Chloride (NS 1000 ml Inj) 1,000 ml @ 70 mls/hr [id number] IV Last administered on 10/02/16 00:25; Start 10/01/16 at 23:30 Sodium Chloride (NS Flush) 2 ml BID IV FLUSH ; Start 10/02/16 at 09:00 Sodium Chloride 2 ml 2 ml UNSCH PRN IVF FLUSH AFTER USING IV ACCESS; Start at 23:30 Trazodone HCl (Desyrel) 150 mg HS PO Last administered on 10/02/16 01:49; Start 10/02/16 at 01:30 Family History The patient's mother had a history of breast cancer. Father at the age of 59 with history of kidney cancer. Social History The patient lives with a roommate. She has a daughter. She reports she quit tobacco use 37 years ago. Denies alcohol or other illicit drug abuse. (Makayla Rutherford) Physical Exam Vital Signs Vital Signs Date Time Temp Pulse Resp B/P Pulse Ox O2 Delivery O2 Flow Rate FiO2 10/02/16 08:12 72 16 143/63 100 Room Air 10/02/16 01:53 75 20 156/63 99 Room Air 10/02/16 01:12 75 20 146/64 99 Room Air 10/01/16 22:36 77 20 99 Room Air 10/01/16 20:40 89 20 139/60 99 Room Air 10/01/16 16:59 98.2 93 20 134/62 99 Room Air Physical Exam GENERAL: This is a well-nourished, well-developed patient, in no apparent distress. SKIN: No rashes, ecchymoses or lesions. Cool and dry. HEAD: Atraumatic. Normocephalic. No temporal or scalp tenderness. EYES: Pupils equal round and reactive. Extraocular motions intact. No scleral icterus. No injection or drainage. ENT: Nose without bleeding, purulent drainage or septal hematoma. Throat without erythema, tonsillar hypertrophy or exudate. Uvula midline. Airway patent. NECK: Trachea midline. No JVD or lymphadenopathy. Supple, nontender, no meningeal signs. CARDIOVASCULAR: Regular rate and rhythm without murmurs, gallops, or rubs. RESPIRATORY: Clear to auscultation. Breath sounds equal bilaterally. No wheezes , rales, or rhonchi. GASTROINTESTINAL: Abdomen slightly distended, bowel sounds are hypoactive 4. Diffuse tenderness noted, increased over the left abdomen. MUSCULOSKELETAL: Extremities without clubbing, cyanosis, or edema. No joint tenderness, effusion, or edema noted. No calf tenderness. Negative Homans sign bilaterally. NEUROLOGICAL: Awake and alert. Cranial nerves II through XII intact. Motor and sensory grossly within normal limits. Five out of 5 muscle strength in all muscle groups. Normal speech. Laboratory Laboratory Tests Test 10/01/16 10/01/16 19:03 20:28 White Blood Count 13.1 Red Blood Count 4.93 Hemoglobin 13.3 Hematocrit 40.4 Mean Corpuscular Volume 81.9 Mean Corpuscular Hemoglobin 27.0 Mean Corpuscular Hemoglobin 32.9 Concent Red Cell Distribution Width 13.9 Platelet Count 279 Mean Platelet Volume 8.7 Neutrophils (%) (Auto) 77.0 Lymphocytes (%) (Auto) 14.4 Monocytes (%) (Auto) 6.9 Eosinophils (%) (Auto) 0.8 Basophils (%) (Auto) 0.9 Neutrophils # (Auto) 10.1 Lymphocytes # (Auto) 1.9 Monocytes # (Auto) 0.9 Eosinophils # (Auto) 0.1 Basophils # (Auto) 0.1 CBC Comment DIFF FINAL Differential Comment Sodium Level 138 Potassium Level 3.5 Chloride Level 99 Carbon Dioxide Level 30.9 Anion Gap 8 Blood Urea Nitrogen 16 Creatinine 1.72 Estimat Glomerular Filtration 29 Rate Random Glucose 123 Calcium Level 8.6 Total Bilirubin 0.3 Aspartate Amino Transf 11 (AST/SGOT) Alanine Aminotransferase 14 (ALT/SGPT) Alkaline Phosphatase 45 Total Protein 7.5 Albumin 4.0 Lipase 176 Urine Color YELLOW Urine Turbidity HAZY Urine pH 7.5 Urine Specific [place] 1.009 Urine Protein 30 Urine Glucose (UA) NEG Urine Ketones NEG Urine Occult Blood NEG Urine Nitrite NEG Urine Bilirubin NEG Urine Urobilinogen LESS THAN 2.0 Urine Leukocyte Esterase SMALL Urine RBC 1 Urine WBC 2 Urine Amorphous Sediment RARE Urine Bacteria OCC Microscopic Urinalysis Comment CULT NOT INDICATED (Makayla Rutherford) Result Diagram: 10/01/16190210/01/161902 Imaging Last Impressions Abdomen/Pelvis CT 10/01/162119 Signed Impressions: Service Date/Time: Saturday, October 01, 2016 21:44 - CONCLUSION: 1. There appears to be a stricture of the colon on the left side at the junction of descending colon and sigmoid colon adjacent to postsurgical sutures and possibility of anastomotic stricture or other types of luminal narrowing should be entertained with significant dilatation of the colon proximal to it which is filled with stool. The exact etiology of the patient's prior colon surgery is not known to us. 2. Reduction in size of the masslike density in the perineum adjacent to labia on the left side may be a resolving hematoma. Tomasa Claire MD (Makayla Rutherford) Assessment and Plan Problem List: (1) Constipation (2) Large bowel obstruction (3) Hx of left hemicolectomy (4) ADHD (attention deficit hyperactivity disorder) (5) History of colon cancer (6) Perineal trauma (7) Perineal hematoma Assessment and Plan Admit to Dr. Tran 71-year-old female with history of colon cancer and hemicolectomy, prior admissions for small bowel obstructions treated nonoperatively, constipation. Patient presented to emergency room complaining of crampy abdominal pain, inability to pass gas and hard stools. CT of abdomen showing possible stricture of the colon on the left side at the junction of descending colon and sigmoid colon adjacent to postsurgical sutures and possibility of anastomotic stricture and other types of luminal narrowing should be entertained with significant dilatation of the colon proximally and filled with stool -Colorectal surgery has been consulted, Dr. Chance has evaluated patient, his input is appreciated -Continue with IV fluids Clear liquid diet Pain management has been ordered Acute renal injury, possibly secondary to dehydration Continue with normal saline at 70 BMP in the morning Leukocytosis Follow CBC daily, monitor for fever History of ADHD and Tourette Home medications have been resumed Home medications reviewed, initiated as indicated Heparin and SCDs for DVT prophylaxis Plan of care has been discussed with the patient, attending and registered nurse. Further management of the patient will be dependent on the hospital course This patient was seen by myself and Dr. Tran, this H&P is written on his behalf (Makayla Rutherford) Assessment and Plan pt is seen and examined as above chart reviewed dw pt plan of care dw supervisor die casting dw rn agree with above (Kristi Tran MD) Physician Certification 2 Midnight Certification Type: Admission for Inpatient Services Order for Inpatient Services The services are ordered in accordance with Medicare regulations or non- Medicare payer requirements, as applicable. In the case of services not specified as inpatient-only, they are appropriately provided as inpatient services in accordance with the 2-midnight benchmark. Estimated LOS (days): 2 2 days is the estimated time the patient will need to remain in the hospital, assuming treatment plan goals are met and no additional complications. Post-Hospital Plan: Home (Makayla Rutherford) Problem Qualifiers (1) Constipation: Qualified Code: K59.00 - Constipation, unspecified constipation type (2) ADHD (attention deficit hyperactivity disorder): Qualified Code: F90.9 - Attention deficit hyperactivity disorder (ADHD), unspecified ADHD type (3) Perineal trauma: Qualified Code: S39.94XS - Perineal trauma, sequela (4) Perineal hematoma: Qualified Code: S30.23XS - Perineal hematoma, sequela Makayla Rutherford Oct 02, 2016 09:48 Kristi Tran MD Oct 02, 2016 21:17
[2016-10-02] MEDS: HYDROmorphone HCL PF 1 MG/ML VIAL IV PRN ×2 (12:13→21:24)
[2016-10-02] MEDS: buPROPion HCL 100 MG SUSTAINED RELEASE TAB PO SCH ×2 (12:14→21:29)
[2016-10-02] MEDS ORDERED: DIATRIZOATE MEGLUM/DIATRIZOATE SOD 120 ML BTL (for RAD DIAG) RECTAL ONE (12:16)
[2016-10-02 12:50] VITALS: BP 155/67; PULSE 77; RESP 16; O2SAT 99
--- NOTE | 2016-10-02 13:40 | RADRPT ---
EXAM DATE/TIME: 10/02/2016 11:20 [facility] COMPARISON: No previous studies available for comparison. INDICATIONS : Evaluate colon stricture FLUORO TIME: 2.8 minutes IMAGE COUNT: 21 CONTRAST: 1. [facility] MEDICAL HISTORY : lymph node cancer SURGICAL HISTORY : Hysterectomy. Colon resection ENCOUNTER: Initial ACUITY: 1 day PAIN SCORE: 10/10 LOCATION: Bilateral abdomen FINDINGS: Initial perforator operator oil well film demonstrates a normal bowel gas pattern without evidence of obstruction or ileus. Gastrografin flows freely to the hepatic flexure without obstruction. Extensive fecal debris is not ed throughout the entire colon. There is no definite stricture involving the sigmoid colon. No dive rticular disease is noted. CONCLUSION: 1. No evidence of stricture within the region of the sigmoid colon. 2. Extensive fecal debris throughout the colon as described above. Case Moy MD on October 02, 2016 at 13:32 Board Certified Radiologist. This report was verified electronically.
[2016-10-02 16:00] VITALS: BP 164/70; PULSE 74; RESP 16; O2SAT 99
[2016-10-02 20:00] VITALS: BP 176/70; PULSE 80; RESP 18; TEMP 97.1; O2SAT 100
[2016-10-02] MEDS ORDERED: buPROPion HCL 100 MG SUSTAINED RELEASE TAB PO SCH (21:00)
[2016-10-02] MEDS ORDERED: traZODone HCL 50 MG TAB PO SCH (21:00)
[2016-10-02] MEDS ORDERED: PIMOZIDE PO SCH (21:00)
[2016-10-03 04:00] VITALS: BP 123/59; PULSE 72; RESP 18; TEMP 97.2; O2SAT 98
[2016-10-03] MEDS: SODIUM CHLOR 0.9% 1000 ML INJ 1,000 ML IV SCH ×2 (04:06→18:24)
[2016-10-03 04:29] LABS: AUTOMATED NEUTROPHIL # 5.2 TH/MM3 (1.8-7.7); BASOPHIL % 0.4 % (0.0-2.0); EOSINOPHIL # 0.3 TH/MM3 (0-0.4); EOSINOPHIL % 3.3 % (0.0-4.0); HEMATOCRIT 37.4 % (35.0-46.0); HEMO FLAGS DIFF FINAL; LYMPH % 24.8 % (9.0-44.0); LYMPHOCYTE # 2.1 TH/MM3 (1.0-4.8); MEAN CELL VOLUME 81.7 FL (80.0-100.0); MEAN CORPUSCULAR HEMOGLOBIN 26.6 PG (27.0-34.0); MEAN CORPUSCULAR HGB CONC 32.6 % (32.0-36.0); MONO % 9.2 % (0.0-8.0); NEUT % 62.3 % (16.0-70.0); PLATELET COUNT 207 TH/MM3 (150-450); RED BLOOD COUNT 4.57 MIL/MM3 (4.00-5.30); RED CELL DISTRIBUTION WIDTH 14.2 % (11.6-17.2); WHITE BLOOD COUNT 8.3 TH/MM3 (4.0-11.0)
[2016-10-03 04:57] LABS: BICARBONATE 29.6 MEQ/L (21.0-32.0); POTASSIUM 3.5 MEQ/L (3.5-5.1)
[2016-10-03 08:00] VITALS: BP 140/65; PULSE 72; RESP 18; TEMP 98.4; O2SAT 93
[2016-10-03] MEDS ORDERED: METHYLPHENIDATE PO SCH (09:00)
[2016-10-03] MEDS: SODIUM CHLORIDE 0.9% FLUSH 10 ML FLUSH IV FLUSH SCH ×2 (09:00→20:35)
[2016-10-03] MEDS: HEPARIN SODIUM - SQ 10,000 UNITS/ML VIAL SQ SCH ×2 (09:42→20:34)
[2016-10-03] MEDS: buPROPion HCL 100 MG SUSTAINED RELEASE TAB PO SCH ×2 (09:43→20:33)
[2016-10-03] MEDS: ATOMOXETINE HYDROCHLORIDE 60 MG CAP PO SCH (09:43)
[2016-10-03] MEDS: HYDROmorphone HCL PF 1 MG/ML VIAL IV PRN (11:17)
[2016-10-03 12:00] VITALS: BP 117/52; PULSE 84; RESP 20; TEMP 97; O2SAT 100
--- NOTE | 2016-10-03 14:26 | HHI.PR ---
Subjective Remarks anxiety over no BM X 2 weeks. resting in bed. sipping prune juice alert. awake (Yumiko Moyer) Objective Objective Results - Vital Signs Date Time Temp Pulse Resp B/P Pulse Ox O2 Delivery O2 Flow Rate FiO2 10/03/16 12:00 97.0 84 20 117/52 100 10/03/16 11:47 18 10/03/16 08:00 98.4 72 18 140/65 93 10/03/16 04:00 97.2 72 18 123/59 98 10/02/16 20:00 97.1 80 18 176/70 100 10/02/16 16:00 74 16 164/70 99 Room Air I/O 10/02/16 10/02/16 10/02/16 10/03/16 10/03/16 10/03/16 06:59 14:59 22:59 06:59 14:59 22:59 Intake Total 240 ml 240 ml Output Total 400 ml Balance 240 ml -160 ml Intake Oral 240 ml 240 ml Output Urine Total 400 ml # Voids 2 # Bowel Movements 0 0 (Yumiko Moyer) Result Diagram: 10/03/1641610/03/16416 ROS General: Weakness (generalized), Other (10 point ros done, constipation, anxiety, otherwise negative) (Yumiko Moyer) Physical Exam Physical Exam PHYSICAL EXAMINATION GENERAL: This is a well-developed, well-nourished female who appears to be in moderate anxiety distress. She is alert and awake, HEAD: Normocephalic without any lesion or mass noted. Facial features appear symmetric. OROPHARYNGEAL: Oropharynx without erythema or edema. NECK: Supple. No nuchal rigidity or lymphadenopathy. Trachea midline without deviation. CARDIAC: Regular rhythm, regular rate, S1 and S2 are heard. Murmur soft, no gallops or rubs. LUNGS: Clear to auscultation bilaterally. no wheeze,no rhonchi No use of accessory muscles on inspiration or expiration. ABDOMEN: taut, mild pain lower quadrants, EXTREMITIES: no edema. Pulses equal bilateral. NEUROLOGICAL: Patient mood and affect appropriate. No focal deficit SKIN:Warm and moist Objective Remarks My bowels havent moved in 2 weeks. (Yumiko Moyer) A/P Assessment and Plan 1) Constipation (2) Large bowel obstruction (3) Hx of left hemicolectomy (4) ADHD (attention deficit hyperactivity disorder) (5) History of colon cancer (6) Perineal trauma (7) Perineal hematoma Assessment and Plan Admit to Dr. Tran Now diet advanced to regular diet, appetite fair, afraid to eat. No BM X 2 weeks per patient -Colorectal surgery has been consulted, Dr. Chance has evaluated patient, his input is appreciated -Continue with IV fluids Pain management has been ordered Acute renal injury, resolving, monitor Leukocytosis, resolved. History of ADHD and Tourette Home medications have been resumed Heparin and SCDs for DVT prophylaxis Constipation severe, acute on chronic, SS enema ordered, discussed with nurse. Pt. has had 2 bottles Mg citrate before coming to hospital , no results. Sipping prune juice/ Will follow. Discussed With: Nurse, Family (patient), Other (, seen on his behalf) ( Yumiko Moyer) Assessment and Plan Patient seen and examined as above Labs and radiological data reviewed Medications reviewed Plan for Toradol for pain as patient wants to avoid any opioids Discussed with RN on the floor Plan of care discussed with OXYACETYLENE CUTTER Discussed with patient in detail (Kristi Tran MD) Yumiko Moyer Oct 03, 2016 14:26 Kristi Tran MD Oct 03, 2016 15:18
[2016-10-03] MEDS: KETOROLAC TROMETHAMINE 60 MG/2 ML (IM) VIAL IM PRN ×2 (15:49→22:10)
[2016-10-03 16:00] VITALS: BP 133/60; PULSE 85; RESP 20; TEMP 97; O2SAT 98
[2016-10-03 18:24] VITALS: O2SAT 98
[2016-10-03 20:00] VITALS: BP 132/60; PULSE 89; RESP 20; TEMP 99.4; O2SAT 96
[2016-10-03] MEDS: traZODone HCL 50 MG TAB PO SCH (20:33)
[2016-10-03] MEDS: clonazePAM 1 MG TAB PO SCH (20:34)
[2016-10-03] MEDS: POLYETHYLENE GLYCOL 17 GM PKG PO SCH (20:34)
[2016-10-04 00:08] VITALS: BP 117/56; PULSE 77; RESP 21; TEMP 98; O2SAT 100
[2016-10-04] MEDS: HYDROmorphone HCL PF 1 MG/ML VIAL IV PRN ×2 (03:08→16:42)
[2016-10-04 04:37] LABS: HEMATOCRIT 36.6 % (35.0-46.0); MEAN CELL VOLUME 81.5 FL (80.0-100.0); MEAN CORPUSCULAR HEMOGLOBIN 26.8 PG (27.0-34.0); MEAN CORPUSCULAR HGB CONC 32.9 % (32.0-36.0); PLATELET COUNT 196 TH/MM3 (150-450); RED BLOOD COUNT 4.49 MIL/MM3 (4.00-5.30); RED CELL DISTRIBUTION WIDTH 14.2 % (11.6-17.2); REVIEW FLAG FINAL; WHITE BLOOD COUNT 10.3 TH/MM3 (4.0-11.0)
[2016-10-04 04:59] LABS: BICARBONATE 28.9 MEQ/L (21.0-32.0); POTASSIUM 3.7 MEQ/L (3.5-5.1)
[2016-10-04 08:00] VITALS: BP 119/53; PULSE 74; RESP 18; TEMP 97.5; O2SAT 99
[2016-10-04] MEDS: ATOMOXETINE HYDROCHLORIDE 60 MG CAP PO SCH (08:34)
[2016-10-04] MEDS: buPROPion HCL 100 MG SUSTAINED RELEASE TAB PO SCH ×2 (08:36→21:40)
[2016-10-04] MEDS: POLYETHYLENE GLYCOL 17 GM PKG PO SCH (08:37)
[2016-10-04] MEDS: HEPARIN SODIUM - SQ 10,000 UNITS/ML VIAL SQ SCH ×2 (08:37→21:41)
[2016-10-04] MEDS: SODIUM CHLORIDE 0.9% FLUSH 10 ML FLUSH IV FLUSH SCH ×2 (08:37→21:00)
[2016-10-04] MEDS: SODIUM CHLOR 0.9% 1000 ML INJ 1,000 ML IV SCH ×2 (08:42→23:00)
[2016-10-04] MEDS: KETOROLAC TROMETHAMINE 60 MG/2 ML (IM) VIAL IM PRN ×2 (08:52→15:12)
--- NOTE | 2016-10-04 10:02 | HHI.PR ---
Subjective Remarks anxiety with her constipation resting in bed recieving tap water enema alert, talkative no family in room. (Yumiko Moyer) Objective Objective Results - Vital Signs Date Time Temp Pulse Resp B/P Pulse Ox O2 Delivery O2 Flow Rate FiO2 10/04/16 08:00 97.5 74 18 119/53 99 10/04/16 00:08 98.0 77 21 117/56 100 10/03/16 20:00 99.4 89 20 132/60 96 10/03/16 18:24 98 21 10/03/16 16:49 18 10/03/16 16:00 97.0 85 20 133/60 98 10/03/16 12:00 97.0 84 20 117/52 100 10/03/16 11:47 18 I/O 10/03/16 10/03/16 10/03/16 10/04/16 10/04/16 10/04/16 07:00 15:00 23:00 07:00 15:00 23:00 Intake Total 240 ml 600 ml 480 ml Output Total 400 ml 1000 ml Balance -160 ml -400 ml 480 ml Intake Oral 240 ml 600 ml 480 ml Output Urine Total 400 ml 1000 ml # Voids 4 # Bowel Movements 0 0 3 (Yumiko Moyer) Result Diagram: 10/04/16 03510/04/16 0352 ROS General: Weakness (generalized), Other (10 point ROS done positives noted are mild anxiety generalized weakness and extreme constipation with abdominal pain other systems negative or unremarkable) GI: Abdominal Pain, Other (constipation, severe) Neuro/MS: Other (anxiety) (Yumiko Moyer) Physical Exam Physical Exam PHYSICAL EXAMINATION GENERAL: This is a well-developed, well-nourished female who appears to be in no acute distress. She is alert and awake, responds to conversation HEAD: Normocephalic without any lesion or mass noted. Facial features appear symmetric. OROPHARYNGEAL: Oropharynx without erythema or edema. NECK: Supple. No nuchal rigidity or lymphadenopathy. Trachea midline without deviation. CARDIAC: Regular rhythm, regular rate, S1 and S2 are heard. Murmur none; . LUNGS: Clear to auscultation bilaterally. no wheeze, no rhonchi No use of accessory muscles on inspiration or expiration. ABDOMEN: Round, taut, . Bowel sounds are heard in all four quadrants. No rebound. No guarding. EXTREMITIES: No edema. Pulses equal bilateral. NEUROLOGICAL: Patient mood and affect appropriate with mild anxiety. No focal deficit SKIN:Warm and moist Objective Remarks I'm trying to clean myself out and I will feel better. (Yumiko Moyer) A/P Assessment and Plan 1) Constipation (2) Large bowel obstruction (3) Hx of left hemicolectomy (4) ADHD (attention deficit hyperactivity disorder) (5) History of colon cancer (6) Perineal trauma (7) Perineal hematoma Now diet advanced to regular diet, appetite fair to good today -Colorectal surgery has been consulted, Dr. Chance has evaluated patient, his input is appreciated -Continue with IV fluids, Soapsuds/water enema yesterday and repeated this a.m. per patient request. Also requesting no MiraLAX due to abdominal cramping. Requested to swap to milk of magnesia 1 or 2 doses this p.m.. She did have some minimal results yesterday, which did include one large hard stool. Pain management used at times with her abdominal pain. Acute renal injury, continues with mild improvement along with her gentle hydration monitor Leukocytosis, resolved. History of ADHD and Tourette Home medications have been resumed Heparin and SCDs for DVT prophylaxis Constipation severe, acute on chronic discussed with nurse. Discharge planning when patient's constipation is resolved. Today versus tomorrow Discussed with nurse Discussed with patient Discussed with Dr. Tran, patient was seen on his behalf Discharge Planning initiated Discussed With: Nurse, Family (patient), Other (, seen on his behalf) ( Yumiko Moyer) Assessment and Plan Patient seen and examined as above Patient has a bowel movement Appreciate colorectal surgery input Continue current management Meds and labs reviewed Discussed with RN Discussed with patient Plan of care discussed with BHAVANI (Kristi Tran MD) Yumiko Moyer Oct 04, 2016 10:02 Kristi Tran MD Oct 04, 2016 13:37
[2016-10-04] MEDS ORDERED: MAGNESIUM HYDROXIDE SUSP 30 ML CUP PO PRN (11:00)
--- NOTE | 2016-10-04 11:27 | HHI.PR ---
Subjective Remarks Obstipation Moving stool slowly Objective Vital Signs Date Time Temp Pulse Resp B/P Pulse Ox O2 Delivery O2 Flow Rate FiO2 10/04/16 09:52 18 10/04/16 08:00 97.5 74 18 119/53 99 10/04/16 00:08 98.0 77 21 117/56 100 10/03/16 20:00 99.4 89 20 132/60 96 10/03/16 18:24 98 21 10/03/16 16:00 97.0 85 20 133/60 98 10/03/16 12:00 97.0 84 20 117/52 100 10/03/16 11:47 18 I/O 10/03/16 10/03/16 10/03/16 10/04/16 10/04/16 10/04/16 07:00 15:00 23:00 07:00 15:00 23:00 Intake Total 240 ml 600 ml 480 ml Output Total 400 ml 1000 ml Balance -160 ml -400 ml 480 ml Intake Oral 240 ml 600 ml 480 ml Output Urine Total 400 ml 1000 ml # Voids 4 # Bowel Movements 0 0 3 Result Diagram: 10/04/16 0352 10/04/16 0352 Objective Remarks Abdomen soft, nontender, mild distension Assessment and Plan Assessment and Plan Continue CoLyte as ordered by Dr. Chance Continue Ambulation Diamond Badillo MD Oct 04, 2016 11:27
[2016-10-04 12:00] VITALS: BP 120/55; PULSE 72; RESP 18; TEMP 96.8; O2SAT 99
--- NOTE | 2016-10-04 15:22 | RADRPT ---
EXAM DATE/TIME: 10/04/2016 14:57 [facility] COMPARISON: No previous studies available for comparison. INDICATIONS : Follow Up Constipation, Abdominal Distention. Evaluate for Obstruction. MEDICAL HISTORY : Hypertension. lymph node cancer. SURGICAL HISTORY : Colon resection. Hysterectomy. ENCOUNTER: Initial ACUITY: 1 day PAIN SCORE: 4/10 LOCATION: Abdomen. FINDINGS: There is moderate constipation and colonic ileus. No significant stool within the rectum. No evidence for small bowel obstruction. No free air. Stomach mildly distended with gas. CONCLUSION: 1. Moderate constipation with colonic ileus. No free air. Yunior Dudley MD on October 04, 2016 at 15:18 Board Certified Radiologist. This report was verified electronically.
[2016-10-04 16:00] VITALS: BP 120/58; PULSE 82; RESP 20; TEMP 97.4; O2SAT 99
[2016-10-04 20:00] VITALS: BP 139/64; PULSE 86; RESP 20; TEMP 97.6; O2SAT 100
[2016-10-04] MEDS ORDERED: PIMOZIDE PO SCH (21:00)
[2016-10-04] MEDS: clonazePAM 1 MG TAB PO SCH (21:58)
[2016-10-04] MEDS: traZODone HCL 50 MG TAB PO SCH (22:16)
[2016-10-05] VITALS: BP 132/63; PULSE 86; RESP 20; TEMP 97.4; O2SAT 100
[2016-10-05 08:00] VITALS: BP 110/53; PULSE 71; RESP 18; TEMP 96.5; O2SAT 98
[2016-10-05] MEDS: buPROPion HCL 100 MG SUSTAINED RELEASE TAB PO SCH (08:19)
[2016-10-05] MEDS: ATOMOXETINE HYDROCHLORIDE 60 MG CAP PO SCH (08:20)
[2016-10-05] MEDS: SODIUM CHLORIDE 0.9% FLUSH 10 ML FLUSH IV FLUSH SCH (08:20)
[2016-10-05] MEDS: HEPARIN SODIUM - SQ 10,000 UNITS/ML VIAL SQ SCH (08:20)
--- NOTE | 2016-10-05 11:58 | HHI.PR ---
Subjective Remarks anxiety, improved 9 lb wt. loss since adm, constipation resolved alert, talkative asking for regular diet with extra fruit Objective Objective Results - Vital Signs Date Time Temp Pulse Resp B/P Pulse Ox O2 Delivery O2 Flow Rate FiO2 10/05/16 08:00 96.5 71 18 110/53 98 10/05/16 00:00 97.4 86 20 132/63 100 10/04/16 20:00 97.6 86 20 139/64 100 10/04/16 16:00 97.4 82 20 120/58 99 10/04/16 12:00 96.8 72 18 120/55 99 I/O 10/04/16 10/04/16 10/04/16 10/05/16 10/05/16 10/05/16 07:00 15:00 23:00 07:00 15:00 23:00 Intake Total 480 ml 700 ml 240 ml 240 ml Output Total 2700 ml 1600 ml 200 ml Balance 480 ml -2000 ml -1360 ml 40 ml Intake Oral 480 ml 700 ml 240 ml 240 ml IV Total 0 ml 0 ml Output Urine Total 1200 ml 0 ml Stool Total 1500 ml 1600 ml 200 ml # Voids 4 2 # Bowel Movements 3 Result Diagram: 10/04/16 0352 10/04/16 0352 Medications and IVs Active Medications Patient Own Medication PT OWN MED: PIMOZID... HS PO; Start 10/04/16 at 21:00; Status Hold ROS General: Other (10 point ROS done. 9 lb wt loss from bowel regimin., other systems negative.) GI: Abdominal Pain (soreness mild), Other (constipation resolved ) Physical Exam Physical Exam PHYSICAL EXAMINATION GENERAL: This is a well-developed, well-nourished female who appears to be in no acute distresstoday She is alert and awake, hungry today. HEAD: Normocephalic without any lesion or mass noted. Facial features appear symmetric. OROPHARYNGEAL: Oropharynx without erythema or edema. NECK: Supple. No nuchal rigidity or lymphadenopathy. Trachea midline without deviation. CARDIAC: Regular rhythm, regular rate, S1 and S2 are heard. Murmur soft no gallops or rubs. LUNGS: Clear to auscultation bilaterally. no wheeze, no rhonchi No use of accessory muscles on inspiration or expiration. ABDOMEN: flat, Soft, nontender, no organomegaly or masses. Bowel sounds are heard in all four quadrants. mild soreness from constipation, EXTREMITIES: no edema. Pulses equal bilateral. NEUROLOGICAL: Patient mood and affect appropriate. No focal deficit SKIN:Warm and moist Objective Remarks Feeling so much better today, normally again A/P Assessment and Plan 1) Constipation (2) Large bowel obstruction (3) Hx of left hemicolectomy (4) ADHD (attention deficit hyperactivity disorder) (5) History of colon cancer (6) Perineal trauma (7) Perineal hematoma Now diet advanced to regular diet, appetite good today, and requesting extra fruit -Colorectal surgery has been consulted, Dr. Chance has evaluated patient, his input is appreciated -Continue with IV fluids, Soapsuds/water enema yesterday and repeated this a.m. per patient request. Also gave laxatives and juice yesterday p.m. patient had large amount of stool expelled on several occasions yesterday. Weight this morning was a 9 pound weight loss. Abdomen is now flat soft, mild minimal tenderness with multiple BMs and enemas. Pain management used at times with her abdominal pain. Acute renal injury, continues with mild improvement along with her gentle hydration monitor Leukocytosis, resolved. History of ADHD and Tourette Home medications have been resumed Heparin and SCDs for DVT prophylaxis Constipation severe, acute on chronic discussed with nurse. Discharge planning probable today. Advance diet to regular, called out for extra fruit Discussed with nurse Discussed with patient Discussed with Dr. Tran, patient was seen on his behalf Discharge Planning initiated Discussed With: Nurse, Family (patient), Other (, seen on his behalf) Yumiko Moyer Oct 05, 2016 11:58
[2016-10-05 12:00] VITALS: BP 105/51; PULSE 75; RESP 18; TEMP 96.4; O2SAT 100
[2016-10-05] MEDS ORDERED: LACT10SO PO (12:08)
--- NOTE | 2016-10-05 12:13 | HHI.PR ---
Subjective Remarks Obstipation Moved a lot of stool last night and pm Objective Vital Signs Date Time Temp Pulse Resp B/P Pulse Ox O2 Delivery O2 Flow Rate FiO2 10/05/16 08:00 96.5 71 18 110/53 98 10/05/16 00:00 97.4 86 20 132/63 100 10/04/16 20:00 97.6 86 20 139/64 100 10/04/16 16:00 97.4 82 20 120/58 99 I/O 10/04/16 10/04/16 10/04/16 10/05/16 10/05/16 10/05/16 06:59 14:59 22:59 06:59 14:59 22:59 Intake Total 480 ml 700 ml 240 ml 240 ml Output Total 2700 ml 1600 ml 200 ml Balance 480 ml -2000 ml -1360 ml 40 ml Intake Oral 480 ml 700 ml 240 ml 240 ml IV Total 0 ml 0 ml Output Urine Total 1200 ml 0 ml Stool Total 1500 ml 1600 ml 200 ml # Voids 4 2 # Bowel Movements 3 Result Diagram: 10/04/16 0352 10/04/16 0352 Objective Remarks Abdomen soft, nontender, nondistended Assessment and Plan Assessment and Plan Home today with Lactulose Followup with Diamond Echols i, MD Oct 05, 2016 12:13
--- NOTE | 2016-10-05 19:18 | HHI.DS ---
Discharge Summary Admission Date Oct 01, 2016 at 23:25 Discharge Date: Oct 05, 2016 Admitting Diagnosis large bowel obstruction (1) Constipation Diagnosis: Principal (2) Large bowel obstruction Diagnosis: Principal (3) Hx of left hemicolectomy Diagnosis: Secondary (4) ADHD (attention deficit hyperactivity disorder) Diagnosis: Secondary (5) History of colon cancer Diagnosis: Secondary (6) Perineal trauma Diagnosis: Secondary (7) Perineal hematoma Diagnosis: Secondary Procedures enemas X 2 Brief History Patient was a 70-year-old female with history of colon cancer April 2015, status post left hemicolectomy per Dr. Chance, ADHD, hypertension, hyperlipidemia. She's had frequent admissions for bowel obstructions treated nonsurgically, the last time was in 2015 during which time she required NG tube insertion and TPN. Patient presented to the emergency room with complaint of abdominal pain, distention, inability to pass gas. Patient reported that she has not been able to have a bowel movement for 2 weeks, she is only passing car pebble-sized stools. Indicated that she does have a history of constipation since she was a child. She took 2 bottles of mag citrate yesterday without any results. She had felt abdominal distention and generalized crampy pain. CBC/BMP: 10/04/16 0352 10/04/16 0352 Significant Findings Laboratory Tests Test 10/03/16 10/04/16 04:17 03:52 Mean Corpuscular Hemoglobin 26.6 PG 26.8 PG (27.0-34.0) (27.0-34.0) Monocytes (%) (Auto) 9.2 % (0.0-8.0) Creatinine 1.17 MG/DL 1.17 MG/DL (0.50-1.00) (0.50-1.00) Estimat Glomerular Filtration 46 ML/MIN (>89) 46 ML/MIN (>89) Rate Random Glucose 107 MG/DL (74-106) Imaging Last Impressions Abdomen X-Ray 10/04/16 0000 Signed Impressions: Service Date/Time: Tuesday, October 04, 2016 14:57 - CONCLUSION: 1. Moderate constipation with colonic ileus. No free air. Yunior Dudley MD Enema w/Water Soluble 10/02/16 0600 Signed Impressions: Service Date/Time: September 11:20 - CONCLUSION: 1. No evidence of stricture within the region of the sigmoid colon. 2. Extensive fecal debris throughout the colon as described above. Case Moy MD Abdomen/Pelvis CT 10/01/162119 Signed Impressions: Service Date/Time: Saturday, October 01, 2016 21:44 - CONCLUSION: 1. There appears to be a stricture of the colon on the left side at the junction of descending colon and sigmoid colon adjacent to postsurgical sutures and possibility of anastomotic stricture or other types of luminal narrowing should be entertained with significant dilatation of the colon proximal to it which is filled with stool. The exact etiology of the patient's prior colon surgery is not known to us. 2. Reduction in size of the masslike density in the perineum adjacent to labia on the left side may be a resolving hematoma. Tomasa Claire MD PE at Discharge GENERAL: This was a well-developed, well-nourished female who appears to be in no acute distresstoday She was alert and awake, hungry today. HEAD: Normocephalic without any lesion or mass noted. Facial features appear symmetric. OROPHARYNGEAL: Oropharynx without erythema or edema. NECK: Supple. No nuchal rigidity or lymphadenopathy. Trachea midline without deviation. CARDIAC: Regular rhythm, regular rate, S1 and S2 are heard. Murmur soft no gallops or rubs. LUNGS: Clear to auscultation bilaterally. no wheeze, no rhonchi No use of accessory muscles on inspiration or expiration. ABDOMEN: flat, Soft, nontender, no organomegaly or masses. Bowel sounds are heard in all four quadrants. mild soreness from constipation, EXTREMITIES: no edema. Pulses equal bilateral. NEUROLOGICAL: Patient mood and affect appropriate. No focal deficit SKIN:Warm and moist Hospital Course She was evaluated in emergency room, CBC remarkable for mild leukocytosis, WBC 13.1. BMP remarkable for elevated creatinine, 1.72. Hemodynamically stable, no fever. CT of the abdomen shows stricture of the colon on the left side at the junction of descending colon and sigmoid colon adjacent to postsurgical sutures and possibility of anastomotic stricture or other type of luminal narrowing should be entertained with significant dilatation of the colon proximally to it which is filled with stool. There is a masslike density in the perineum on that appears redundant skin size, it is adjacent to the labia and the left side. May be a resolving hematoma. Patient was recently seen in the emergency room after she had a fall and had an injury to the perineum. Patient was admitted. She has been evaluated by Dr. Chance. At this time, patient is complaining of pain and requesting medication. Patient is very concerned about her oral medications, she is on multiple medications for history of ADHD and Tourette's. Patient is admitted for further elevation and treatment. These are the diagnoses that were used to treat this patient during hospital stay in plan of care. 1) Constipation (2) Large bowel obstruction (3) Hx of left hemicolectomy (4) ADHD (attention deficit hyperactivity disorder) (5) History of colon cancer (6) Perineal trauma (7) Perineal hematoma Original diet was regular diet soft with increased amount of liquids, today Now diet advanced to regular diet, appetite good today, and requesting extra fruit. -Colorectal surgery has been consulted, Dr. Chance has evaluated patient, his input is appreciated Plan was for medical management for the time being. Monitor -Continue with IV fluids, Soapsuds/water enema yesterday and repeated this a.m. per patient request. Also gave laxatives and juice yesterday p.m. patient had large amount of stool expelled on several occasions yesterday. Weight this morning was a 9 pound weight loss. Abdomen is now flat soft, mild minimal tenderness with multiple BMs and enemas. Pain management used at times with her abdominal pain. Acute renal injury, continues with mild improvement along with her gentle hydration monitor Leukocytosis, resolved. History of ADHD and Tourette Home medications have been resumed Heparin and SCDs for DVT prophylaxis Constipation severe, acute on chronic discussed with nurse. Today patient was seen by GENERAL PEDIATRICIAN and Dr. Tran. Abdomen was now stable and constipation was relieved. She has instructions on dietary needs with low residue diet high fiber, follow-up with her PCP as an outpatient. No other acute issues . Pt Condition on Discharge: Good Discharge Disposition: Discharge Home Discharge Instructions DIET: Follow Instructions for: Low Residue Diet Activities you can perform: Weight Bearing as [place] Follow up Referrals: Colorectal Surgery - 1 Week PCP Follow-up - 1 Week New Medications: Lactulose Liq (Lactulose Liq) 10 Gm/15 Ml Soln 60 ML PO Q12HR hold if diarhoea PRN constipaton Days 30 Ref 0 ML Continued Medications: Atomoxetine (Strattera) 60 Mg Cap 180 MG PO DAILY Hyperactivity Control #30 Ref 0 CAP Bupropion HCl ER 12 HR (Wellbutrin SR 12 HR) 100 Mg Tab 400 MG PO Q12HR Control Depression Ref 0 TAB Clonazepam (Klonopin) 2 Mg Tab 4 MG PO HS #90 Ref 0 TAB Hydrocodone-Acetaminophen (Lortab) 5-325 Mg Tab 1 TAB PO Q6H PRN PAIN GREATER THAN 6 #12 Ref 0 TAB Ibuprofen (Ibuprofen) 600 Mg Tab 600 MG PO Q8HR PRN PAIN #30 Ref 0 TAB Methylphenidate ER 24 HR (Concerta) 54 Mg Miguel 108 MG PO DAILY ADHD #30 Ref 0 TAB Pimozide (Pimozide) 2 Mg Tab 1 TAB PO HS Ropinirole (Ropinirole) 1 Mg Tab 1 MG PO HS #30 Ref 0 TAB Rosuvastatin (Crestor) 40 Mg Tab 40 MG PO HS Cholesterol Management #30 Ref 0 TAB Trazodone (Trazodone) 150 Mg Tab 150 MG PO HS Control Depression #30 Ref 0 TAB Yumiko Moyer Oct 05, 2016 19:17
== END 2016-10-05 13:47 | disposition home or self-care (01) | DRG 389 ==
LOC: NEPC 16:58 → NEDA 23:25 → NEDH 10-02 03:42 → NEDA 10-02 10:37 → N07A 10-02 18:10
PROVIDERS: ADMIT Specialist; ATTEND Specialist
DX: K56.69 Other intestinal obstruction (principal); N17.9 Acute kidney failure, unspecified; F95.2 Tourette's disorder; K59.00 Constipation, unspecified; I10 Essential (primary) hypertension; F90.9 Attention-deficit hyperactivity disorder, unspecified type; E78.5 Hyperlipidemia, unspecified; D72.829 Elevated white blood cell count, unspecified; E66.9 Obesity, unspecified; F32.9 Major depressive disorder, single episode, unspecified; F41.9 Anxiety disorder, unspecified; S30.2 Contusion of external genital organs; Z85.038 Personal history of other malignant neoplasm of large intestine; Z90.49 Acquired absence of other specified parts of digestive tract; Z85.820 Personal history of malignant melanoma of skin; Z87.891 Personal history of nicotine dependence; W19.XXXD Unspecified fall, subsequent encounter
CPT/HCPCS: 74020; 74176; 74270; 76937; 80048; 80053; 81001; 83690; 85025; 85027; J1170; J1644; J1885; J7030; Q9963